=== PATIENT | male | born 2000 | race African-American/Black ===

== ENCOUNTER 2020-08-21 07:12 | Emergency (ER) | payer SELFPAY ==
[2020-08-21] MEDS ORDERED: FLUORESCEIN SODIUM 1 MG/WRAP ONE (07:38)
[2020-08-21] MEDS ORDERED: TETRACAINE HCL 0.5% 4ML OPTH ONE (07:38)
--- NOTE | 2020-08-21 07:52 | ER ---
Nurse's Notes [facility] Name: Tigre Mathews Age: 20 yrs Sex: Male : 2000 Arrival Date: 08/21/2020 Time: 07:14 Bed 13 Private MD: Diagnosis: Foreign body in conjunctival sac, left eye Presentation: 08/21 07:16 Chief complaint: Patient states: "I was bending over and my girlfriend's heel hit my aa5 left eye and I think something got into my left eye because I feel something in it every time I blink". 07:16 Coronavirus screen: Client denies travel out of the [place] in the last 14 days. At this aa5 time, the client does not indicate any symptoms associated with coronavirus-19. Ebola Screen: Patient negative for fever greater than or equal to 101.5 degrees Fahrenheit, and additional compatible Ebola Virus Disease symptoms. Initial Sepsis Screen: Does the patient meet any 2 criteria? No. Patient's initial sepsis screen is negative. Does the patient have a suspected source of infection? No. Patient's initial sepsis screen is negative. Risk Assessment: Do you want to hurt yourself or someone else? Patient reports no desire to harm self or others. Onset of symptoms was August 21, 2020. 07:16 Acuity: IBAN 4 aa5 07:16 Method Of Arrival: Ambulatory aa5 Triage Assessment: 07:20 General: Appears in no apparent distress. uncomfortable, Behavior is calm, cooperative, bp appropriate for age. Pain: Complains of pain in left eye. EENT: Reports FB LEFT EYE. Neuro: No deficits noted. Cardiovascular: No deficits noted. Respiratory: No deficits noted. GI: No signs and/or symptoms were reported involving the gastrointestinal system. : No signs and/or symptoms were reported regarding the genitourinary system. Derm: No deficits noted. Musculoskeletal: No deficits noted. Historical: - Allergies: 07:16 No Known Allergies; aa5 - PMHx: 07:16 None; aa5 - PSHx: 07:16 None; aa5 - Immunization history:: Adult Immunizations unknown. - Social history:: Smoking status: Patient reports the use of cigarette tobacco products, denies chronic smoking, but will smoke occasionally. - Family history:: not pertinent. - Hospitalizations: : No recent hospitalization is reported. Screenin:18 Abuse screen: Denies threats or abuse. Denies injuries from another. Nutritional bp screening: No deficits noted. Tuberculosis screening: No symptoms or risk factors identified. Fall Risk None identified. Assessment: 07:20 General: SEE TRIAGE NOTE. bp 08:18 Reassessment: PT D/C HOME AMBULATORY, DX WITH CORNEAL ABRASION. bp Vital Signs: 07:16 BP 139 / 93; Pulse 71; Resp 16 S; Temp 98.5(O); Pulse Ox 99% on R/A; Weight 61.23 kg aa5 (R); Height 5 ft. 11 in. (180.34 cm) (R); Pain 6/10; 08:18 BP 131 / 78; Pulse 75; Resp 16; Temp 98.5; Pulse Ox 99% ; bp 07:16 Body Mass Index 18.83 (61.23 kg, 180.34 cm) aa5 ED Course: 07:14 Patient arrived in ED. ag5 07:16 Arm band placed on Patient placed in an exam room, on a stretcher. aa5 07:18 Armando Lindo MD is Attending Physician. rn 07:24 James Borges, JOSH is Primary Nurse. bp 07:27 Triage completed. aa5 07:30 Assist provider with eye exam of left eye. using fluorescein stain, Performed by Armando Lindo MD Patient tolerated well. 08:18 Patient has correct armband on for positive identification. Bed in low position. Call bp light in reach. Side rails up X2. 08:19 Patient did not have IV access during this emergency room visit. bp Administered Medications: 07:26 Drug: Tetracaine Drops 0.5 % 1 drops {Note: administered by Dr. Lindo.} Route: aa5 Ophthalmic; Site: left eye; 07:30 Drug: Fluorescein Strip 1 strip Route: Ophthalmic; Site: left eye; bp Outcome: 07:52 Discharge ordered by . rn 08:19 Discharged to home ambulatory. bp 08:19 Condition: stable 08:19 Discharge instructions given to patient, Instructed on discharge instructions, follow up and referral plans. medication usage, Demonstrated understanding of instructions, follow-up care, medications, Prescriptions given X 1. 08:20 Patient left the ED. bp Signatures: Armando Lindo MD MD rn Calderon, Audri, RN RN aa5 Peltier, Brian, RN RN bp Samreen, Naina ag5
--- NOTE | 2020-08-21 07:53 | EDPHYS ---
Physician Documentation [facility] Name: Tigre Mathews Age: 20 yrs Sex: Male : 2000 Arrival Date: 08/21/2020 Time: 07:14 Bed 13 Private MD: ED Physician Armando Lindo HPI: 08/21 07:34 This 20 yrs old Black Male presents to ER via Ambulatory with complaints of Foreign rn Body In Eye. 07:34 The patient is experiencing foreign body sensation, The patient sustained a scratch, to rn the left eye, caused by heel of shoe. Onset: The symptoms/episode began/occurred just prior to arrival. Duration: the symptoms are continuous. Aggravated by blinking, rubbing, Alleviated by nothing. Associated signs and symptoms: Pertinent positives: None. Severity of symptoms: At their worst the symptoms were mild in the emergency department the symptoms are unchanged. The patient has not experienced similar symptoms in the past. The patient has not recently seen a physician. Reports hit in left eye with heel of shoe, thinks maybe got scratched or something on heel irritated eye. . Historical: - Allergies: 07:16 No Known Allergies; aa5 - PMHx: 07:16 None; aa5 - PSHx: 07:16 None; aa5 - Immunization history:: Adult Immunizations unknown. - Social history:: Smoking status: Patient reports the use of cigarette tobacco products, denies chronic smoking, but will smoke occasionally. - Family history:: not pertinent. - Hospitalizations: : No recent hospitalization is reported. ROS: 07:34 Constitutional: Negative for fever, chills, and weight loss, Eyes: + injury, possible rn foreign body Exam: 07:34 Constitutional: This is a well developed, well nourished patient who is awake, alert, rn and in no acute distress. Eyes: Pupils equal round and reactive to light, extra-ocular motions intact. Periorbital areas with no swelling, redness, or edema. No fluorescein uptake to show ulcer or abrasion. Lids everted and no foreign body. possible black foreign body medial canthus region, unable to remove with flushes and qtips. Vital Signs: 07:16 BP 139 / 93; Pulse 71; Resp 16 S; Temp 98.5(O); Pulse Ox 99% on R/A; Weight 61.23 kg aa5 (R); Height 5 ft. 11 in. (180.34 cm) (R); Pain 6/10; 08:18 BP 131 / 78; Pulse 75; Resp 16; Temp 98.5; Pulse Ox 99% ; bp 07:16 Body Mass Index 18.83 (61.23 kg, 180.34 cm) aa5 MDM: 07:18 Patient medically screened. rn 07:34 Differential diagnosis: Corneal abrasion of left eye. Foreign body in left eye. Data rn reviewed: vital signs, nurses notes, and as a result, I will discharge patient. Counseling: I had a detailed discussion with the patient and/or guardian regarding: the historical points, exam findings, and any diagnostic results supporting the discharge/admit diagnosis, the need for outpatient follow up, to return to the emergency department if symptoms worsen or persist or if there are any questions or concerns that arise at home. Special discussion: I discussed with the patient/guardian in detail that at this point there is no indication for admission to the hospital. It is understood, however, that if the symptoms persist or worsen the patient needs to return immediately for re-evaluation. ED course: Ocular foreign body, abrasion. 08/21 07:25 Order name: Eye Tray; Complete Time: 07:25 aa5 Administered Medications: 07:26 Drug: Tetracaine Drops 0.5 % 1 drops {Note: administered by Dr. Lindo.} Route: aa5 Ophthalmic; Site: left eye; 07:30 Drug: Fluorescein Strip 1 strip Route: Ophthalmic; Site: left eye; bp Disposition: 08/21/20 07:52 Discharged to Home. Impression: Foreign body in conjunctival sac, left eye. - Condition is Stable. - Discharge Instructions: Corneal Abrasion, Eye Foreign Body. - Prescriptions for Vigamox 0.5 % Ophthalmic Drops - instill 1 drop by OPHTHALMIC route every 8 hours for 7 days; 5 milliliter. - Medication Reconciliation Form, Thank You Letter, Antibiotic Education, Prescription Opioid Use form. - Follow up: Private Physician; When: As needed; Reason: Recheck today's complaints, Re-evaluation by your physician. - Problem is new. - Symptoms have improved. Signatures: Armando Lindo MD MD rn Calderon, Audri RN RN aa Jony, James, RN RN bp Corrections: (The following items were deleted from the chart) 08:20 07:52 08/21/2020 07:52 Discharged to Home. Impression: Foreign body in conjunctival bp sac, left eye. Condition is Stable. Forms are Medication Reconciliation Form, Thank You Letter, Antibiotic Education, Prescription Opioid Use. Follow up: Private Physician; When: As needed; Reason: Recheck today's complaints, Re-evaluation by your physician. Problem is new. Symptoms have improved. rn
[2020-08-21 08:24] VITALS: TEMP 98.5; O2SAT 99
[2020-08-21 08:25] VITALS: BP 131/78
== END 2020-08-21 08:20 | disposition home or self-care (01) ==
LOC: ER 07:12
DX: T15.12XA Foreign body in conjunctival sac, left eye, initial encounter (principal); F17.210 Nicotine dependence, cigarettes, uncomplicated
CPT/HCPCS: 99283

== ENCOUNTER 2024-12-07 06:37 | Emergency (ER) | payer SELFPAY ==
[2024-12-07] MEDS ORDERED: NA CHLORIDE 0.9% 1,000 ML ONE (07:02)
[2024-12-07] MEDS ORDERED: KETOROLAC 30 MG/ML INJ ONE (07:02)
[2024-12-07 07:27] LABS: Absolute Basophils 0.1 K/uL (0-0.5); Absolute Eosinophils 0.5 K/uL (0-0.5); Absolute Lymphocytes (CBC) 2.9 K/uL (0.7-4.9); Absolute Monocytes 0.6 K/uL (0.1-1.3); Absolute Neutrophil 5.4 K/uL (1.8-8.0); Basophils % 0.7 % (0-1.3); Eosinophils % 4.8 % (0-4.4); Hematocrit 39.7 % (39.6-49.0); Lymphocytes % 31.1 % (15.3-44.8); MCH 31.5 pg (27.0-35.0); MCHC 35.2 g/dL (32.0-36.0); MCV 89.7 fL (80-100); MPV 10.6 fL (7.6-11.3); Monocytes % 6.3 % (3.3-12.3); Neutrophils % 57.1 % (41.7-73.7); Platelets 153 thou/uL (152-406); RBC Red Blood Cell Count 4.43 M/uL (4.33-5.43); Red Cell Distribution Width 12.9 % (12.1-15.2)
[2024-12-07 07:44] LABS: Albumin 3.5 g/dL (3.4-5.0); Albumin/Globulin Ratio 1.1 (1.1-1.8); Bilirubin Total 0.3 mg/dL (0.2-1.0); Globulin 3.3 g/dL (2.3-3.5); Protein, Total 6.8 g/dL (6.4-8.2)
--- NOTE | 2024-12-07 07:59 | RAD REPORT ---
EXAMINATION: CT ABDOMEN AND PELVIS WITH CONTRAST CLINICAL INDICATION: ABD PAIN TECHNIQUE: CT abdomen and pelvis was performed, after the administration of IV contrast, as per [facility] protocol. Axial, sagittal and coronal reconstructions were obtained. One or more of the following dose reduction techniques were used: Automated exposure control, adjustment of the mA and k V according to patient size, and iterative reconstruction. Unless otherwise specified, incidental findings do not require dedicated imaging follow-up. COMPARISON: No prior exam. FINDINGS: LOWER CHEST: The visualized lung bases are clear. LIVER: Normal in size and contour. No focal lesion. Grossly unremarkable gallbladder. SPLEEN: Normal size. No focal lesion. PANCREAS: No mass, ductal dilation, or davis-pancreatic fluid. ADRENALS: Normal; no mass. KIDNEYS: Normal size and contour. No hydronephrosis. GASTROINTESTINAL TRACT: No evidence of free air, significant intra-abdominal free fluid, bowel obstru ction or abscess. APPENDIX: Appendix not visualized, but no inflammatory changes in region of appendix. LYMPH NODES: No lymphadenopathy. MUSCULOSKELETAL: No acute or suspicious osseous abnormality. ADDITIONAL FINDINGS: Moderate retained stool throughout the colon. IMPRESSION: No acute seen in the abdomen or pelvis. Moderate constipation.
[2024-12-07 08:48] LABS: Specific Gravity > 1.030 (1.005-1.030); Urine Bilirubin NEGATIVE (Negative); Urine Blood Negative (Negative); Urine Clarity Clear (Clear); Urine Color Light-Yellow (Yellow); Urine Glucose NEGATIVE (Negative); Urine Ketones NEGATIVE (Negative); Urine Microscopic Reflex YN NO UMIC; Urine Nitrite NEGATIVE (Negative); Urine Protein NEGATIVE (Negative); Urine Urobilinogen Normal (Normal); Urine pH 6.5 (5.0-7.0)
--- NOTE | 2024-12-07 09:04 | EDPHYS ---
Physician Documentation [facility] Name: Tigre Mathews Age: 24 yrs Sex: Male : 2000 Arrival Date: 12/07/2024 Time: 06:37 Bed 7 Private MD: ED Physician Keith Aguirre HPI: 12/07 06:55 This 24 yrs old Black Male presents to ER via Unassigned with complaints of rt Nausea/Vomiting, Abdominal Pain. 06:55 Patient presents to the ED with a lower abdominal pain starting last night. He had rt nausea with 1 episode of vomiting and diarrhea. Denies blood in vomit or the diarrhea. Denies other acute complaints at this time, symptoms are moderate in severity, aching nature, nonradiating, no other aggravating or elevating factors.. Historical: - Allergies: 06:40 No Known Allergies; ha1 - PMHx: 06:40 None; ha1 - Immunization history:: Adult Immunizations. - Infectious Disease History:: Denies. - Family history:: not pertinent. - Social history:: Smoking status: Reported history of juuling and/or vaping. ROS: 06:55 Constitutional: Negative for fever, chills, and weight loss, Cardiovascular: Negative rt for chest pain, palpitations, and edema, Respiratory: Negative for shortness of breath, cough, wheezing, and pleuritic chest pain, MS/Extremity: Negative for injury and deformity, Skin: Negative for injury, rash, and discoloration, Neuro: Negative for headache, weakness, numbness, tingling, and seizure, 06:55 Abdomen/GI: Positive for abdominal pain, nausea, vomiting, and diarrhea, Exam: 06:55 Constitutional: This is a well developed, well nourished patient who is awake, alert, rt and in no acute distress. Head/Face: Normocephalic, atraumatic. Chest/axilla: Normal chest wall appearance and motion. Nontender with no deformity. No lesions are appreciated. Cardiovascular: Regular rate and rhythm with a normal S1 and S2. No gallops, murmurs, or rubs. Normal PMI, no JVD. No pulse deficits. Respiratory: Lungs have equal breath sounds bilaterally, clear to auscultation and percussion. No rales, rhonchi or wheezes noted. No increased work of breathing, no retractions or nasal flaring. Skin: Warm, dry with normal turgor. Normal color with no rashes, no lesions, and no evidence of cellulitis. MS/ Extremity: Pulses equal, no cyanosis. Neurovascular intact. Full, normal range of motion. Neuro: Awake and alert, GCS 15, oriented to person, place, time, and situation. Cranial nerves II-XII grossly intact. Motor strength 5/5 in all extremities. Sensory grossly intact. Cerebellar exam normal. Normal gait. 06:55 Abdomen/GI: Tenderness to the suprapubic region with no guarding, rebound, distention, Vital Signs: 06:47 BP 124 / 65; Pulse 56; Resp 18 S; Temp 98.3(O); Pulse Ox 100% on R/A; Weight 70.31 kg; ha1 Height 6 ft. 0 in. ; Pain 6/10; 07:19 BP 108 / 61; Pulse 51; Resp 15; Pulse Ox 100% ; Pain 6/10; ll1 08:16 BP 109 / 66; Pulse 54; Resp 15; Pulse Ox 100% ; ll1 09:09 BP 111 / 61; Pulse 56; Resp 16; Pulse Ox 100% ; Pain 0/10; ll1 06:47 Body Mass Index 21.02 (70.31 kg, 182.88 cm) ha1 06:47 Pain Scale: Adult ha1 07:19 Pain Scale: Adult ll1 09:09 Pain Scale: Adult ll1 MDM: 06:51 Medical Screening Exam initiated rt 06:56 Differential diagnosis: Appendicitis, UTI, gastroenteritis, diverticulitis. Transition rt of care: After a detail discussion of the patient's case, care is transferred to Keith Aguirre DO. 07:24 Transition of care: Care assumed from Raman Hsieh MD. ms3 09:04 Data reviewed: vital signs, nurses notes, lab test result(s), radiologic studies, and ms3 as a result, I will discharge patient. I considered the following discharge prescriptions or medication management in the emergency department Medications were administered in the Emergency Department. See MAR. Counseling: I had a detailed discussion with the patient and/or guardian regarding the historical points, exam findings, and any diagnostic results supporting the discharge/admit diagnosis, lab results, radiology results, the need for outpatient follow up, to return to the emergency department if symptoms worsen or persist or if there are any questions or concerns that arise at home. Special discussion: Based on the patient's Hx, exam, and Dx evaluation, there is no indication for emergent surgery or inpatient Tx. It is understood by the patient/guardian that if the Sx's persist or worsen they need to return immediately for re-evaluation. ED course: Discussed labs, CT scan with patient. Patient's lipase elevated, however, patient abdomen nontender to palpation in the epigastric region, CT scan does not show pancreatitis. Patient to follow-up with primary care physician in 2 to 3 days. Patient understands and agrees with plan. All questions were answered. Return precautions discussed to include epigastric pain radiating to the back, inability to tolerate p.o., worsening symptoms, or any other concerns.. 12/07 06:55 Order name: CBC with Diff; Complete Time: 08:01 rt 12/07 06:55 Order name: CMP; Complete Time: 08:01 rt 12/07 06:55 Order name: Lipase; Complete Time: 08:01 rt 12/07 06:55 Order name: Urinalysis w/ reflexes; Complete Time: 08:56 rt 12/07 06:55 Order name: CT Abd/Pelvis - IV Contrast Only; Complete Time: 08:01 rt 12/07 06:55 Order name: IV Saline Lock; Complete Time: 07:01 rt 12/07 06:55 Order name: Labs collected and sent; Complete Time: 07:01 rt Administered Medications: 07:07 Drug: NS 0.9% IV 1000 ml IV at 1 bolus Per protocol; to be given as a bolus over 60 ll1 minutes Route: IV; Rate: 1 bolus; Site: right forearm; 08:17 Follow up: Response: No adverse reaction; IV Status: Completed infusion; IV Intake: ll1 980ml 07:08 Drug: TORadol - Ketorolac IVP 15 mg IVP once Route: IVP; Site: right forearm; ll1 08:17 Follow up: Response: No adverse reaction; Pain is decreased ll1 Disposition Summary: 12/07/24 09:03 Discharge Ordered Notes: Location: Home ms3 Condition: Stable ms3 Diagnosis - Abdominal pain, unspecified ms3 Followup: ms3 - With: Hubert Pérez, - When: 2 - 3 days - Reason: Recheck today's complaints Discharge Instructions: - Discharge Summary Sheet ll1 - Abdominal Pain, Adult ms3 - Constipation, Adult, [id number] ms3 Forms: - Work release form ll1 - Medication Reconciliation Form ms3 - Antibiotic Education ms3 - Prescription Opioid Use ms3 - Patient Portal Instructions ms3 - Leadership Thank You Letter ms3 Signatures: Dispatcher [employer] EDMS Gerson Corona RN RN ll1 Keith Aguirre, DO ms3 Phyllis Cabrera RN RN ha1 Raman Hsieh MD MD rt Corrections: (The following items were deleted from the chart) 06:55 06:55 Abdomen Pelvis W Con+[id number].[id number] ordered. EDMS EDMS
--- NOTE | 2024-12-07 09:04 | ER ---
Nurse's Notes [facility] Name: Tigre Mathews Age: 24 yrs Sex: Male : 2000 Arrival Date: 12/07/2024 Time: 06:37 Bed 7 Private MD: Diagnosis: Abdominal pain, unspecified Presentation: 12/07 06:47 Chief complaint: Patient states: LOWER ABDOMINAL P[AIN, NAUSEA, VOMITING, AND DIARRHEA. ha1 06:47 Coronavirus screen: Client denies travel out of the [place] in the last 14 days. Ebola ha1 Screen: No symptoms or risks identified at this time. Initial Sepsis Screen: Does the patient meet any 2 criteria? No. Patient's initial sepsis screen is negative. Does the patient have a suspected source of infection? No. Patient's initial sepsis screen is negative. Risk Assessment: Do you want to hurt yourself or someone else? Patient reports no desire to harm self or others. Onset of symptoms was December 07, 2024. 06:47 Method Of Arrival: Ambulatory ha1 06:47 Acuity: IBAN 3 ha1 Historical: - Allergies: 06:40 No Known Allergies; ha1 - PMHx: 06:40 None; ha1 - Immunization history:: Adult Immunizations. - Infectious Disease History:: Denies. - Family history:: not pertinent. - Social history:: Smoking status: Reported history of juuling and/or vaping. Screenin:08 [facility] ED Fall Risk Assessment (Adult) History of falling in the last 3 months, ll1 including since admission No falls in past 3 months (0 pts) Confusion or Disorientation No (0 pts) Intoxicated or Sedated No (0 pts) Impaired Gait No (0 pts) Mobility Assist Device Used No (0 pt) Altered Elimination No (0 pt) Score/Fall Risk Level 0 - 2 = Low Risk Maintained a safe environment, Hourly rounding (assess needs \T\ fall precautionary measures) done. Abuse screen: Denies threats or abuse. Nutritional screening: No deficits noted. Tuberculosis screening: No symptoms or risk factors identified. Assessment: 07:08 General: Appears in no apparent distress. Behavior is calm, cooperative, appropriate ll1 for age. Pain: Complains of pain in abdomen Quality of pain is described as aching, crampy. Neuro: No deficits noted. GI: Reports lower abdominal pain, diarrhea, nausea, vomiting. 07:20 Reassessment: No changes from previously documented assessment. Patient and/or family ll1 updated on plan of care and expected duration. Pain level reassessed. Patient is alert, oriented x 3, equal unlabored respirations, skin warm/dry/pink. 08:16 Reassessment: No changes from previously documented assessment. Patient and/or family ll1 updated on plan of care and expected duration. Pain level reassessed. Patient is alert, oriented x 3, equal unlabored respirations, skin warm/dry/pink. Patient states feeling better. 09:09 Reassessment: No changes from previously documented assessment. Patient and/or family ll1 updated on plan of care and expected duration. Pain level reassessed. Patient is alert, oriented x 3, equal unlabored respirations, skin warm/dry/pink. Patient states feeling better. 09:10 GI: Abdomen is flat. ll1 Vital Signs: 06:47 BP 124 / 65; Pulse 56; Resp 18 S; Temp 98.3(O); Pulse Ox 100% on R/A; Weight 70.31 kg; ha1 Height 6 ft. 0 in. ; Pain 6/10; 07:19 BP 108 / 61; Pulse 51; Resp 15; Pulse Ox 100% ; Pain 6/10; ll1 08:16 BP 109 / 66; Pulse 54; Resp 15; Pulse Ox 100% ; ll1 09:09 BP 111 / 61; Pulse 56; Resp 16; Pulse Ox 100% ; Pain 0/10; ll1 06:47 Body Mass Index 21.02 (70.31 kg, 182.88 cm) ha1 06:47 Pain Scale: Adult ha1 07:19 Pain Scale: Adult ll1 09:09 Pain Scale: Adult ll1 ED Course: 06:40 Patient arrived in ED. gm2 06:51 Raman Hsieh MD is Attending Physician. rt 06:57 Triage completed. ha1 07:00 Gerson Corona RN is Primary Nurse. ll1 07:09 Patient has correct armband on for positive identification. Bed in low position. ll1 Provided Education on: ER procedures and process. Client placed on continuous cardiac and pulse oximetry monitoring. NIBP monitoring applied. 07:10 Patient placed in an exam room, on a stretcher. ll1 07:10 Inserted saline lock: 20 gauge in right forearm, using aseptic technique. Blood ll1 collected. Flushed with 10 mL NS. 07:24 Attending Physician role handed off by Raman Hsieh MD ms3 07:24 Keith Aguirre DO is Attending Physician. ms3 07:51 CT Abd/Pelvis - IV Contrast Only In Process Unspecified. EDMS 09:02 Hubert Pérez DO is Referral Physician. ms3 09:09 No provider procedures requiring assistance completed. IV discontinued, intact, ll1 bleeding controlled, No redness/swelling at site. Pressure dressing applied. Administered Medications: 07:07 Drug: NS 0.9% IV 1000 ml IV at 1 bolus Per protocol; to be given as a bolus over 60 ll1 minutes Route: IV; Rate: 1 bolus; Site: right forearm; 08:17 Follow up: Response: No adverse reaction; IV Status: Completed infusion; IV Intake: ll1 980ml 07:08 Drug: TORadol - Ketorolac IVP 15 mg IVP once Route: IVP; Site: right forearm; ll1 08:17 Follow up: Response: No adverse reaction; Pain is decreased ll1 Medication: 07:09 VIS not applicable for this client. ll1 Intake: 08:17 IV: 980ml; Total: 980ml. ll1 Outcome: 09:03 Discharge ordered by . ms3 09:10 Discharged to home ambulatory, ll1 09:10 Condition: stable 09:10 Discharge instructions given to patient, Instructed on discharge instructions, follow up and referral plans. Demonstrated understanding of instructions, follow-up care, 09:10 Patient left the ED. ll1 Signatures: Dispatcher [employer] EDMS Gerson Corona RN RN ll1 Keith Aguirre DO DO ms3 Phyllis Cabrera RN RN ha1 Raman Hsieh MD MD rt Mitchell, Ginger 2
[2024-12-08 13:02] VITALS: O2SAT 100
[2024-12-08 13:04] VITALS: TEMP 98.3
[2024-12-08 13:08] VITALS: BP 111/61
== END 2024-12-07 09:10 | disposition home or self-care (01) ==
LOC: ER 06:37
DX: R10.30 Lower abdominal pain, unspecified (principal); R11.2 Nausea with vomiting, unspecified; R19.7 Diarrhea, unspecified
CPT/HCPCS: 36415; 74177; 80053; 81003; 83690; 85025; 96361; 96374; 99284; J7030; Q9967